=== PATIENT | female | born 1990 | race Caucasian/White ===

== ENCOUNTER 2023-12-15 09:27 | Emergency (ER) | payer SELFPAY ==
[~2023-12-15] VITALS: Ht 162.6 cm; Wt 50.3 kg
[2023-12-15 10:25] LABS: BASOPHILS # (AUTO) 0.1 K/UL (0.0-0.2); BASOPHILS % (AUTO) 0.8 % (0.0-2.0); EOSINOPHILS # (AUTO) 0.1 K/uL (0.0-0.7); EOSINOPHILS % (AUTO) 0.7 % (0.0-7.0); HEMATOCRIT 33.5 % (31.2-41.9); HEMOGLOBIN 11.5 g/dL (10.9-14.3); LYMPHOCYTES % (AUTO) 8.3 % (20.5-51.5); MEAN CORPUSCULAR HEMOGLOBIN 36.5 uug (24.7-32.8); MEAN CORPUSCULAR HGB CONC 34 g/dL (32.3-35.6); MEAN CORPUSCULAR VOLUME 106.6 fL (75.5-95.3); MONOCYTES # (AUTO) 0.7 K/uL (0.1-1.30); MONOCYTES % (AUTO) 5.6 % (0.0-11.0); NEUTROPHILS % (AUTO) 84.6 % (38.5-71.5); PLATELET COUNT (AUTO) 278 K/uL (179-408); RED BLOOD CELL COUNT(AUTO) 3.14 MIL/uL (3.63-4.92); RED CELL DISTRIBUTION WIDTH 15.5 % (12.3-17.7); WHITE BLOOD COUNT (AUTO) 11.8 K/uL (3.8-11.8)
[2023-12-15] MEDS: IV NORMAL SALINE 1000 ML BAG IV ONE (10:25)
[2023-12-15 10:34] LABS: CARBON DIOXIDE 31 mmol/L (21-32); CHLORIDE 95 mmol/L (98-107); CREATININE 0.4 mg/dL (0.6-1.3); GLUCOSE 105 mg/dL (74-106); POTASSIUM 3.2 mmol/L (3.5-5.1); SODIUM SERUM 135 mmol/L (136-145); UREA NITROGEN, BLOOD 4 mg/dL (7-18)
[2023-12-15 10:35] LABS: DIFFERENTIAL COMMENT 1
[2023-12-15 10:40] LABS: ALANINE AMINOTRANSFERASE 39 U/L (14-59); ALBUMIN 1.9 g/dL (3.4-5.0); ALKALINE PHOSPHATASE 292 U/L (50-136); ASPARTATE AMINOTRANSFERASE 192 U/L (15-37); BILIRUBIN,DIRECT 5.2 mg/dL (0.0-0.2); BILIRUBIN,TOTAL 6.3 mg/dL (0.2-1.0); LIPASE 23 U/L (16-77)
[2023-12-15 10:58] LABS: PREGNANCY TEST SERUM QUAN < 1 miul/L (0-6)
[2023-12-15 11:32] LABS: ETHANOL < 3 MG/DL (0-10)
[2023-12-15] MEDS ORDERED: SPIR25TA6 PO (12:23)
[2023-12-15] MEDS ORDERED: FURO20TA4 PO (12:23)
[2023-12-15 12:39] VITALS: BP 120/85; TEMP 98.5; O2SAT 97
== END 2023-12-15 12:39 | disposition home or self-care (01) ==
LOC: ER 09:27
DX: F43.20 Adjustment disorder, unspecified (principal); K70.9 Alcoholic liver disease, unspecified; R10.2 Pelvic and perineal pain; Z79.899 Other long term (current) drug therapy
CPT/HCPCS: 80076; 80048; 83690; 83735; 85025; 85730; 84702; 36415; 74176; 99284; 96360; 80320; J7040; A4606; A4663; G0480